=== PATIENT | male | born 1980 | race Two or more races ===

== ENCOUNTER 2024-05-14 13:40 | Emergency (ER) | payer OTHER ==
[~2024-05-14] VITALS: Ht 180.3 cm; Wt 90.7 kg
[2024-05-14 13:51] VITALS: O2SAT 100
[2024-05-14 15:24] LABS: BASOPHILS # (AUTO) 0.1 K/UL (0.0-0.2); BASOPHILS % (AUTO) 1.3 % (0.0-2.0); CALCIUM 8.9 mg/dL (8.5-10.1); EOSINOPHILS # (AUTO) 0.1 K/uL (0.0-0.7); EOSINOPHILS % (AUTO) 1.8 % (0.0-7.0); HEMATOCRIT 41.5 % (36.7-47.1); HEMOGLOBIN 13.4 g/dL (12.5-16.3); LYMPHOCYTES # (AUTO) 2.3 K/uL (0.8-4.8); LYMPHOCYTES % (AUTO) 37.4 % (20.5-51.5); MEAN CORPUSCULAR HEMOGLOBIN 27.3 uug (23.8-33.4); MEAN CORPUSCULAR HGB CONC 32 g/dL (32.5-36.3); MEAN CORPUSCULAR VOLUME 84.1 fL (73.0-96.2); MONOCYTES # (AUTO) 0.5 K/uL (0.1-1.30); MONOCYTES % (AUTO) 8.8 % (0.0-11.0); NEUTROPHILS # (AUTO) 3.1 K/uL (1.8-8.9); NEUTROPHILS % (AUTO) 50.7 % (38.5-71.5); PLATELET COUNT (AUTO) 267 K/uL (152-348); POTASSIUM 3.6 mmol/L (3.5-5.1); RED BLOOD CELL COUNT(AUTO) 4.93 MIL/uL (4.06-5.63); RED CELL DISTRIBUTION WIDTH 15.3 % (12.1-16.2); WHITE BLOOD COUNT (AUTO) 6.2 K/uL (3.6-10.2)
[2024-05-14 15:25] LABS: DIFFERENTIAL COMMENT 1
[2024-05-14 15:30] LABS: ALBUMIN 3.5 g/dL (3.4-5.0); BILIRUBIN,TOTAL 1.3 mg/dL (0.2-1.0); TOTAL PROTEIN, SERUM 7.6 g/dL (6.4-8.2)
[2024-05-14 15:39] LABS: THYROID STIMULATING HORMONE 0.782 mIU/mL (0.358-3.740)
[2024-05-17 07:10] LABS: C-PEPTIDE, SERUM 1.7 ng/mL (1.1-4.4)
[2024-05-18 01:06] LABS: HEPATITIS B SURFACE AB, QUAL Non Reactive (.); HEPATITIS C VIRUS ANTIBODY Non Reactive (Non Reactive)
== END 2024-05-14 16:40 | disposition home or self-care (01) ==
LOC: ER 13:40
DX: E11.9 Type 2 diabetes mellitus without complications (principal); I10 Essential (primary) hypertension
CPT/HCPCS: 36415; 84443; 84681; 85025; 86706; 86803; A4606; A4663